=== PATIENT | male | born 1995 | race Two or more races ===

== ENCOUNTER 2024-07-24 08:58 | Emergency (ER) | payer OTHER ==
[~2024-07-24] VITALS: Ht 170.2 cm; Wt 77.1 kg
[2024-07-24] MEDS ORDERED: LIDOCAINE HCL/MPF 1% 30 ML VIAL IJ ONE (09:25)
[2024-07-24] MEDS: LIDOCAINE 1% INJ 50 ML MDV IJ ONE (10:00)
[2024-07-24] MEDS: BACI/NEOM/POLY B OINT PKT 1 UDPKT PACKET TP ONE (10:15)
[2024-07-24] MEDS ORDERED: IBUP-1955 PO (11:06)
[2024-07-24] MEDS ORDERED: CEPH-570 PO (11:06)
[2024-07-24 11:14] VITALS: BP 133/84; TEMP 98; O2SAT 98
== END 2024-07-24 11:14 | disposition home or self-care (01) ==
LOC: ER 09:09
DX: S51.812A Laceration without foreign body of left forearm, initial encounter (principal); W27.8XXA Contact with other nonpowered hand tool, initial encounter; Y93.89 Activity, other specified; Y92.89 Other specified places as the place of occurrence of the external cause; Y99.0 Civilian activity done for income or pay
CPT/HCPCS: 12002; 99283; J3490